=== PATIENT | female | born 2000 | race Caucasian/White ===

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

== ENCOUNTER 2019-03-31 18:21 | Emergency (ER) | payer BC ==
[~2019-03-31] VITALS: Ht 157.5 cm; Wt 58.5 kg
[2019-03-31 19:19] VITALS: BP_SYST 117
--- NOTE | 2019-03-31 21:00 | NUR ---
Per claim clerk, pt LWBS.
== END 2019-03-31 21:00 | disposition left against medical advice (07) ==
LOC: SED 18:21
DX: N93.9 Abnormal uterine and vaginal bleeding, unspecified (principal); Z53.21 Procedure and treatment not carried out due to patient leaving prior to being seen by health care provider

== ENCOUNTER 2019-10-20 20:18 | Observation (INO) | payer BC, MEDICAID ==
[~2019-10-20] VITALS: Ht 160 cm; Wt 69.9 kg
[2019-10-20] MEDS ORDERED: TERBUTALINE SULFATE 1 MG/ML VIAL SUBCUT ONE (21:45)
[2019-10-20] MEDS: TERBUTALINE SULFATE 1 MG/ML VIAL ONE (21:58)
[2019-10-20] MEDS: LR 1,000 ML IV SCH (22:00)
== END 2019-10-20 22:55 | disposition home or self-care (01) ==
LOC: SPU 20:18
PROVIDERS: ADMIT Obstetrics & Gynecology; ATTEND Obstetrics & Gynecology
DX: O26.893 Other specified pregnancy related conditions, third trimester (principal); R10.2 Pelvic and perineal pain; Z3A.34 34 weeks gestation of pregnancy
CPT/HCPCS: 81002; G0378; J3105; J7120; 59899; 96372

== ENCOUNTER 2019-10-25 18:24 | Observation (INO) | payer BC, MEDICAID ==
[~2019-10-25] VITALS: Ht 160 cm; Wt 74.8 kg
== END 2019-10-25 19:50 | disposition home or self-care (01) ==
LOC: SPU 18:24
PROVIDERS: ADMIT Obstetrics & Gynecology; ATTEND Obstetrics & Gynecology
DX: O36.8130 Decreased fetal movements, third trimester, not applicable or unspecified (principal); Z3A.35 35 weeks gestation of pregnancy
CPT/HCPCS: 59025; 76819; 81002; G0378

== ENCOUNTER 2019-11-09 01:41 | Observation (INO) | payer BC, MEDICAID | END 2019-11-09 02:49 | disposition home or self-care (01) | LOC: SPU 01:41 | PROVIDERS: ADMIT Obstetrics & Gynecology; ATTEND Obstetrics & Gynecology | DX: O62.9 Abnormality of forces of labor, unspecified (principal); Z3A.37 37 weeks gestation of pregnancy | CPT/HCPCS: 81002; G0378 ==

== ENCOUNTER 2021-04-06 11:00 | Observation (INO) | payer BC, MEDICAID ==
[~2021-04-06] VITALS: Ht 160 cm; Wt 84.8 kg
[2021-04-06] MEDS ORDERED: LR 1,000 ML IV SCH (13:15)
[2021-04-06] MEDS ORDERED: TERBUTALINE SULFATE 1 MG/ML VIAL SUBCUT PRN (13:15)
[2021-04-06] MEDS ORDERED: MORPHINE SULFATE 10 MG/ML VIAL IVP ONE (17:00)
== END 2021-04-06 17:45 | disposition home or self-care (01) ==
LOC: SPU 11:00
PROVIDERS: ADMIT Obstetrics & Gynecology; ATTEND Obstetrics & Gynecology
DX: O26.892 Other specified pregnancy related conditions, second trimester (principal); R10.2 Pelvic and perineal pain; O36.8120 Decreased fetal movements, second trimester, not applicable or unspecified; Z3A.25 25 weeks gestation of pregnancy
CPT/HCPCS: 96372; 96374; G0378; J2270; J3105; 59899; 81002